=== PATIENT | female | born 1985 | race Caucasian/White ===

== ENCOUNTER → 2017-12-18 | Outpatient (CLI) | payer BC | LOC: GMAM 12:02 | PROVIDERS: ATTEND Family Medicine | DX: D51.3 Other dietary vitamin B12 deficiency anemia (principal); D51.9 Vitamin B12 deficiency anemia, unspecified; D53.9 Nutritional anemia, unspecified; E55.9 Vitamin D deficiency, unspecified ==

== ENCOUNTER → 2018-03-07 | Outpatient (CLI) | payer MEDICAID ==
--- NOTE | 2018-03-07 13:19 | US ---
EXAM DESCRIPTION: OB ,Early (0-14wks) CLINICAL HISTORY: NORMAL COMPARISON: None. TECHNIQUE: Real-time sonographic images of the pelvis are obtained transabdominally. FINDINGS: The uterus measures 10 x 6.0 x 5.8 cm. The uterus is normal positioning. There is a single intrauterine gestational sac. Single embryo is identified. [place]-rump length is 9 mm consistent with estimated gestational age by ultrasound of 7 weeks 0 days. [place] by ultrasound is October 24, 2018. [place] by LMP October 10, 2018. heart rate is 125 bpm. There is a small anechoic fluid collection adjacent to the gestational sac measuring 9 x 9 x 7 mm. The right ovary measures 2.3 x 2.8 x 2.4cm. The left ovary measures 3.3 x 2.3 x 2.9cm. Both ovaries show normal vascular flow. No abnormal adnexal mass or fluid collection is seen. IMPRESSION: There is an early, single living intrauterine fetus with estimated gestational age by ultrasound of 7 weeks 0 days. heart rate is 125 bpm. Small probable implantation bleed or subchorionic hemorrhage adjacent to the gestational sac measuring 7 x 9 mm. Electronically signed by: Johnathan Rutledge MD 03/07/2018 1:18 PM CDT
== END ==
LOC: US 08:57
PROVIDERS: ATTEND General Practice
DX: Z34.81 Encounter for supervision of other normal pregnancy, first trimester (principal)

== ENCOUNTER → 2020-04-10 | Outpatient (CLI) | payer SELFPAY ==
--- NOTE | 2020-04-10 13:26 | CT ---
EXAM DESCRIPTION: Soft Tissue Neck w/Contrast CLINICAL HISTORY: 34 years, Female, LOCALIZED SWELLING, MASS, AND LUMP, HEAD COMPARISON: None. TECHNIQUE: CT of the neck is performed during IV administration of routine adult dose of nonionic iodinated IV contrast. MPR images are created and reviewed as well. FINDINGS: The lung apices are clear. There is normal enhancement of cervical vessels. Thyroid gland appears normal in size. No focal thyroid lesion. C-spine appears normal. Normal intact skull base. Lower portions of the brain appear normal. Normal orbital contents. Patchy opacification of ethmoid air cells with mucous retention cyst in the left maxillary sinus measuring 2 cm. Mucosal thickening in the inferior maxillary sinuses Inhomogeneous nodular appearance of the right parotid gland is noted. The left parotid gland appears normal. No dominant salivary gland mass on the right. Rather there are in numerable small slightly hyperdense rounded areas throughout the entire gland. The submandibular salivary glands appear normal and symmetrical. Right submandibular lymph nodes are mildly prominent measuring up to 7.5 mm short axis dimension. [place] increased density is seen in the right facial soft tissues with mild fascial thickening overlying the masseter muscle and parotid gland. Peritonitis would be a major consideration. Nodularity could be granulomatous changes, cystic dilatation of peripheral ductal branches with inspissated secretions or hyperplasia of lymphoid tissue. With this appearance, a malignant lesion of the parotid gland is not thought likely. Leukemic or lymphomatous involvement of the parotid gland is not thought likely without contralateral involvement or evidence of significant gala enlargement elsewhere. Treatment with follow-up imaging may be helpful. If the right parotid gland duct can be cannulated, retrograde injection (contrast sialogram) may be helpful to see if the ducts are dilated as with chronic sialadenitis. IMPRESSION: Nodular enlargement of the right parotid gland with inflamed appearance. See above differential considerations. Paranasal sinus inflammatory changes. This exam was performed according to our departmental dose-optimization program, which includes automated exposure control, adjustment of the mA and/or kV according to patient size and/or use of iterative reconstruction technique. Electronically signed by: Keegan Mckay MD 04/10/2020 1:24 PM CDT
== END ==
LOC: LAB.O 11:48
PROVIDERS: ATTEND Family Medicine
DX: K11.8 Other diseases of salivary glands (principal); J34.89 Other specified disorders of nose and nasal sinuses

== ENCOUNTER → 2020-08-31 | Outpatient (CLI) | payer OTHER, MEDICAID | LOC: GMAM 10:45 | PROVIDERS: ATTEND Family Medicine | DX: E53.8 Deficiency of other specified B group vitamins (principal); R73.09 Other abnormal glucose; E55.9 Vitamin D deficiency, unspecified; K11.8 Other diseases of salivary glands; M79.671 Pain in right foot; E66.9 Obesity, unspecified ==